=== PATIENT | male | born 1985 | race Caucasian/White ===

== ENCOUNTER 2018-10-22 15:17 | Emergency (ER) | payer BC ==
[2018-10-22] MEDS ORDERED: ONDANSETRON HCL INJ/PF 4 MG/2 ML SDV IV ONE (16:41)
[2018-10-22] MEDS ORDERED: NORMAL SALINE 1000 ML 1,000 ML IV ONE (16:41)
--- NOTE | 2018-10-22 16:43 | ER Document Report ---
ED General - General TRAVEL OUTSIDE OF THE [place] IN LAST 30 DAYS: No <RAUL TERAN - Last Filed: 10/22/18 19:53> <HILDA AVILA - Last Filed: 10/23/18 11:50> - General Chief Complaint: Upper Abdominal Pain Stated Complaint: ABDOMINAL PAIN Time Seen by Provider: 10/22/18 16:36 Primary Care Provider: JOSE M CURTIS MD [ACTIVE STAFF] - Follow up as needed KOLBY MICHAEL MD [ACTIVE STAFF] - Follow up as needed - HPI Notes: Patient is a 33-year-old male with a history of hypertension and chronic neck pain who presents the emergency department complaining of epigastric abdominal pain with associated nausea/vomiting that began 2 days ago. Patient states that food intake does increase his symptoms. He is otherwise urinating normally and having normal bowel movements. The pain does not radiate. No surgical history to his abdomen. Denies drug allergies. Denies any headache, fever, neck pain, URI, sore throat, chest pain, palpitations, syncope, cough, shortness of breath, wheeze, dyspnea, diarrhea, urinary retention, dysuria, hematuria, back pain, or rash. (RAUL TERAN) - Related Data Allergies/Adverse Reactions: No Known Allergies Allergy (Verified 10/22/18 15:18) Past Medical History - Social History Smoking Status: Never Smoker Frequency of alcohol use: None Drug Abuse: None Family History: Reviewed & Not Pertinent Patient has suicidal ideation: No Patient has homicidal ideation: No Renal/ Medical History: Denies: Hx Peritoneal Dialysis Past Surgical History: Reports: Hx Oral Surgery, Hx Orthopedic Surgery - B/L great toes - Immunizations Hx Diphtheria, Pertussis, Tetanus Vaccination: No <RAUL TERAN - Last Filed: 10/22/18 19:53> Review of Systems - Review of Systems -: Yes All other systems reviewed and negative <RAUL TERAN - Last Filed: 10/22/18 19:53> Physical Exam <RAUL TERAN - Last Filed: 10/22/18 19:53> - Vital signs Vitals: Temp Pulse Resp BP Pulse Ox 98.2 F 77 20 119/73 97 10/22/18 15:25 10/22/18 15:25 10/22/18 15:25 10/22/18 15:25 10/22/18 15:25 - Notes Notes: PHYSICAL EXAMINATION: GENERAL: Well-appearing, well-nourished and in no acute distress. LUNGS: Breath sounds clear to auscultation bilaterally and equal. No wheezes rales or rhonchi. HEART: Regular rate and rhythm without murmurs, rubs, gallops. ABDOMEN: Soft, nondistended abdomen. No guarding, no rebound. Normal bowel sounds present. No CVA tenderness bilaterally. + tenderness RUQ. No lower tenderness. Musculoskeletal: FROM to passive/active. Strength 5+/5. Extremities: No cyanosis, clubbing, or edema b/l. Peripheral pulses 2+. Capillary refill less than 3 seconds. NEUROLOGICAL: Normal speech, normal gait. PSYCH: Normal mood, normal affect. SKIN: Warm, Dry, normal turgor, no rashes or lesions noted. (RAUL TERAN) Course - Laboratory Result Diagrams: 10/22/18 17:51 10/22/18 17:51 <RAUL TERAN - Last Filed: 10/22/18 19:53> - Laboratory Result Diagrams: 10/22/18 17:51 10/22/18 17:51 <HILDA AVILA - Last Filed: 10/23/18 11:50> - Re-evaluation Re-evalutation: 10/22/18 20:05 Patient is an afebrile, well-hydrated, 33-year-old male who presents emergency department with epigastric/right upper quadrant abdominal pain. Vitals are acceptable without significant tachycardia, tachypnea, or hypoxia. PE is otherwise unremarkable. CBC, CMP, lipase, urinalysis unremarkable. Patient is nontoxic-appearing. He has received fluids as well as nausea medicine. His right upper quadrant ultrasound is pending. With a negative ultrasound, recommend consult with gastroenterology/PCM in 3-5 days. He is to return to the emergency department any other worsening/concerning symptoms. Transfer of care to [facility]. (RAUL TERAN) 10/22/18 20:34 Right upper quadrant ultrasound is unremarkable. Patient will be discharged home if vitals are within normal limits. (HILDA AVILA) - Vital Signs Vital signs: Temp Pulse Resp BP Pulse Ox 98.2 F 60 17 115/77 91 L 04/15/19 20:48 10/22/18 20:48 10/22/18 20:48 10/22/18 20:48 10/22/18 20:48 - Laboratory Laboratory results interpreted by me: 10/22/18 10/22/18 17:51 17:51 WBC 3.9 L Monocytes % 14.9 H Urine Blood SMALL H Discharge <RAUL TERAN - Last Filed: 10/22/18 19:53> <HILDA AVILA - Last Filed: 10/23/18 11:50> - Discharge Clinical Impression: RUQ abdominal pain Condition: Stable Disposition: HOME, SELF-CARE Instructions: Antinausea Medication ([facility]) Additional Instructions: Maintain adequate fluid and food intake [place] diet ([facility] Bananas, rice, apples, toast, etc Zofran as needed tylenol if needed Monitor for any worsening symptoms Make sure you are staying hydrated enough to urinate and have normal BM's Recheck with your PCM in 2-3 days Consider consult with Gastroenterology for ongoing/worsening symptoms Return to the ED with any worsening symptoms and/or development of fever, headache, chest pain, palpitations, syncope, shortness of breath, trouble breathing, abdominal pain, n/v/d, blood in stool/urine, weakness, or other worsening symptoms that are concerning to you. Prescriptions: RX: Omeprazole 20 mg PO DAILY #30 tablet. Ondansetron [Zofran Odt 4 mg Tablet] 1 - 2 tab PO Q4H PRN #15 tab.rapdis PRN Reason: For Nausea/Vomiting Sucralfate [Carafate] 1 gm PO BID #100 ml Forms: Return to Work Referrals: JOSE M CURTIS MD [ACTIVE STAFF] - Follow up as needed KOLBY MICHAEL MD [ACTIVE STAFF] - Follow up as needed
[2018-10-22 18:31] LABS: ABSOLUTE EOSINOPHILS # (AUTO) 0.1 10^3/uL (0.0-0.6); ABSOLUTE LYMPHOCYTES (AUTO) 1.3 10^3/uL (0.5-4.7); ABSOLUTE MONOCYTES (AUTO) 0.6 10^3/uL (0.1-1.4); ABSOLUTE NEUT (AUTO) 1.9 10^3/uL (1.7-8.2); BASOPHILS % (AUTO) 0.3 % (0-2); HEMOGLOBIN 14.2 g/dL (13.5-17.0); LYMPHOCYTES % (AUTO) 32.8 % (13-45); MEAN CORPUSCULAR HEMOGLOBIN 31.7 pg (27.0-33.4); MEAN CORPUSCULAR HGB CONC 35.6 g/dL (32.0-36.0); MEAN CORPUSCULAR VOLUME 89 fl (80-97); MONOCYTES % (AUTO) 14.9 % (3-13); PLATELET COUNT 248 10^3/uL (150-450); RED BLOOD COUNT 4.49 10^6/uL (4.35-5.55); RED CELL DISTRIBUTION WIDTH 12.7 % (11.5-14.0); TOTAL CELLS COUNTED % (AUTO) 100 %; WHITE BLOOD COUNT 3.9 10^3/uL (4.0-10.5)
[2018-10-22 18:37] LABS: APPEARANCE,URINE SLIGHTLY-CLOUDY; BILIRUBIN,URINE NEGATIVE (NEGATIVE); COLOR,URINE YELLOW; GLUCOSE, URINE NEGATIVE (NEGATIVE); KETONES,URINE NEGATIVE (NEGATIVE); LEUKOCYTE ESTERASE,URINE NEGATIVE (NEGATIVE); NITRITE,URINE NEGATIVE (NEGATIVE); PROTEIN,URINE NEGATIVE (NEGATIVE); UROBILINOGEN,URINE NEGATIVE mg/dL (<2.0)
[2018-10-22 18:57] LABS: ALANINE AMINOTRANSFERASE 54 U/L (21-72); ALBUMIN 4.4 g/dL (3.5-5.0); ALKALINE PHOSPHATASE 56 U/L (38-126); ANION GAP 10 (5-19); ASPARTATE AMINO TRANSFERASE 41 U/L (17-59); BILIRUBIN,DIRECT 0.4 mg/dL (0.0-0.4); BILIRUBIN,TOTAL 0.8 mg/dL (0.2-1.3); BLOOD UREA NITROGEN 19 mg/dL (7-20); CALCIUM 9.4 mg/dL (8.4-10.2); CARBON DIOXIDE 27 mmol/L (22-30); CHLORIDE 105 mmol/L (98-107); GLUCOSE 81 mg/dL (75-110); LIPASE 56.3 U/L (23-300); POTASSIUM 4.1 mmol/L (3.6-5.0); SODIUM 141.5 mmol/L (137-145); TOTAL PROTEIN 7.8 g/dL (6.3-8.2)
--- NOTE | 2018-10-22 20:15 | RADIOLOGY REPORT (SQ) ---
EXAM DESCRIPTION: US ABDOMEN LIMITED COMPLETED DATE/TME: 10/22/2018 16:41 CLINICAL HISTORY: 33 years, Male, RUQ/epigastric pain Findings: Pancreas is within normal limits with no focal lesions. Liver is within normal limits with no focal lesions. Aorta and IVC are within normal limits. Portal vein is patent with hepatopedal flow. Gallbladder is unremarkable with no evidence for calculus, wall thickening or pericholecystic fluid. No sonographic [place]amorro sign. No significant biliary dilatation with CBD measuring 2 mm. No right hydronephrosis. No right upper quadrant ascites. IMPRESSION: No evidence for cholelithiasis or cholecystitis.
[2018-10-22 20:56] VITALS: BP 115/77
== END 2018-10-22 20:48 | disposition home or self-care (01) ==
LOC: ER 15:17
DX: R10.11 Right upper quadrant pain (principal); R10.13 Epigastric pain; G89.29 Other chronic pain; M54.2 Cervicalgia
CPT/HCPCS: 99284; 96361; 96374; 36415; 83690; 85025; 80053; 81001; 76705; J2405; J7030